=== PATIENT | female | born 1980 | race Hispanic/Latino ===

== ENCOUNTER 2016-11-23 17:55 | Emergency (ER) | payer SELFPAY ==
[2016-11-23] MEDS ORDERED: XYLOCAINE 2% INFILTRATI ONE ×2 (22:26)
--- NOTE | 2016-11-23 22:33 | Emergency Department Report ---
- General Chief complaint: Skin/Abscess/Foreign Body Stated complaint: LWR BACK PAIN /INSECT BITE UNDER LT ARM Time Seen by Provider: 11/23/16 22:06 Source: patient Mode of arrival: Ambulatory Limitations: No Limitations - History of Present Illness MD complaint: abscess/boil Onset/Timin -: days(s) Tetanus Up to Date: yes Location: LUE Severity: moderate Severity scale (0 -10): 5 Quality: burning, sharp Consistency: constant Improves with: none Worsens with: palpation, movement Context: none Associated symptoms: fever, chills, itching, nausea, myalgias Treatments Prior to Arrival: none - Related Data Previous Rx's Medication Instructions Recorded Last Taken Type Clindamycin [Clindamycin CAP] 300 mg PO Q6H #40 capsule 11/24/16 Unknown Rx traMADol [Ultram 50 MG tab] 50 mg PO Q6HR PRN #20 tablet 11/24/16 Unknown Rx Allergies Allergy/AdvReac Type Severity Reaction Status Date / Time No Known Allergies Allergy Unverified 11/23/16 19:15 Abscess Boil HPI - [facility] Chief Complaint: Skin/Abscess/Foreign Body Stated Complaint: LWR BACK PAIN /INSECT BITE UNDER LT ARM Time Seen by Provider: 11/23/16 22:06 Duration: 3 Days Location: Upper Extremity Severity: Moderate History: Yes Fever, Yes Pain, Yes Purulent Drainage, Yes Insect Bite (? insect bite "I thought it was as spider bite"), No Numbness, No Foreign Body, No Previous History Home Medications: Previous Rx's Medication Instructions Recorded Last Taken Type Clindamycin [Clindamycin CAP] 300 mg PO Q6H #40 capsule 11/24/16 Unknown Rx traMADol [Ultram 50 MG tab] 50 mg PO Q6HR PRN #20 tablet 11/24/16 Unknown Rx Allergies/Adverse Reactions: Allergies Allergy/AdvReac Type Severity Reaction Status Date / Time No Known Allergies Allergy Unverified 11/23/16 19:15 ED Review of Systems ROS: Stated complaint: LWR BACK PAIN /INSECT BITE UNDER LT ARM Other details as noted in HPI Constitutional: denies: chills, fever Eyes: denies: eye pain, eye discharge, vision change ENT: denies: ear pain, throat pain Respiratory: denies: cough, shortness of breath, wheezing Cardiovascular: denies: chest pain, palpitations Endocrine: no symptoms reported Gastrointestinal: denies: abdominal pain, nausea, diarrhea Genitourinary: denies: urgency, dysuria, discharge Musculoskeletal: denies: back pain, joint swelling, arthralgia Skin: lesions, other (abscess left Axillary ) Neurological: denies: headache, weakness, paresthesias Psychiatric: denies: anxiety, depression Hematological/Lymphatic: denies: easy bleeding, easy bruising ED Past Medical Hx - Past Medical History Previous Medical History?: No - Surgical History Past Surgical History?: No - Social History Smoking Status: Never Smoker Substance Use Type: None - Medications Home Medications: Home Medications Medication Instructions Recorded Confirmed Last Taken Type Clindamycin [Clindamycin CAP] 300 mg PO Q6H #40 capsule 11/24/16 Unknown Rx traMADol [Ultram 50 MG tab] 50 mg PO Q6HR PRN #20 tablet 11/24/16 Unknown Rx ED Physical Exam - General Limitations: No Limitations General appearance: alert, in no apparent distress - Head Head exam: Present: atraumatic, normocephalic - Eye Eye exam: Present: normal appearance, PERRL, EOMI - ENT ENT exam: Present: mucous membranes moist - Neck Neck exam: Present: normal inspection - Respiratory Respiratory exam: Present: normal lung sounds bilaterally. Absent: respiratory distress - Cardiovascular Cardiovascular Exam: Present: regular rate, normal rhythm. Absent: systolic murmur, diastolic murmur, rubs, gallop - GI/Abdominal GI/Abdominal exam: Present: soft, normal bowel sounds - Rectal Rectal exam: Present: deferred - Extremities Exam Extremities exam: Present: normal inspection, full ROM - Expanded Upper Extremity Exam Left General: Present: normal inspection Shoulder Exam: Present: normal inspection Upper Arm exam: Present: tenderness, erythema, other (left axillary ) Elbow exam: Present: normal inspection Forearm Wrist exam: Present: normal inspection Hand Wrist exam: Present: normal inspection Neuro motor exam: Present: wrist extension intact, thumb opposition intact, thumb IP flexion intact, thumb adduction intact, fingers 2-5 abduction intact Neurosensory exam: Present: 2-point discrimination, radial nerve intact Vascular: Present: normal capillary refill, radial pulse, brachial pulse, ulnar pulse. Absent: vascular compromise, pulse deficit radial art, pulse deficit ulnar art, pulse deficit brachial art - Back Exam Back exam: Present: normal inspection - Neurological Exam Neurological exam: Present: alert, oriented X3 - Psychiatric Psychiatric exam: Present: normal affect, normal mood - Skin Skin exam: Present: warm, dry, intact, erythema, other (left axillar abscess 3x4 irregular erythe moderate streaking ) ED Course Vital Signs 11/23/16 19:12 Temperature 99.4 F Pulse Rate 100 H Respiratory 20 Rate Blood Pressure 107/80 O2 Sat by Pulse 100 Oximetry - Reevaluation(s) Reevaluation #1: 11/23/16 23:32 The patient is going to sign out AGAINST MEDICAL ADVICE. The patient is alert and oriented 3. The patient exhibits decision-making capacity, and is able to articulate the risks of leaving, including , disability, paralysis, permanent loss of quality of life. The AMA conversation was witnessed by nurse Ana Stern, the patient understands that she can return to the ER right away if and when she changes her mind. The patient is informed that the ER is open 24 hours a day, and 7 days a week. The patient is able to endorse the risks of leaving in her own words, and she will be discharged with antibiotics, instructions to closely follow up if she elects to not be admitted. 11/24/16 03:19 - I & D Left Upper Arm Type of Procedure: Complex Site: left axillary Blade Size: 11 I & D Procedure: betadine prep, sterile drapes applied, gauze wick placed Progress: Left Axillary Abcess 3x4 CM with red streaking to left arm , I&D at this time , skin preped with betabdine solution, anesthesia with 2% lidicaine plain appox 3 cc, 11 blade incision, blunt probbed with forceps inocculations purulent drainage moderate amount, wound irrigated with 60 cc NS, Iodoform packing 1/4 inch, sterile dressing applied,no bleeding at this time, pt tolerated procedure with minimal distress. ED Medical Decision Making - Lab Data Result diagrams: 11/23/16 22:16 11/23/16 22:16 Laboratory Tests 11/23/16 11/23/16 11/23/16 22:16 22:16 22:32 WBC 18.8 H RBC 4.57 Hgb 13.3 Hct 40.5 MCV 89 MCH 29 MCHC 33 RDW 14.8 Plt Count 207 ESR 42 Sodium 136 L Potassium 3.4 L Chloride 97.0 L Carbon Dioxide 24 Anion Gap 18 BUN 12 Creatinine 0.8 Estimated GFR > 60 BUN/Creatinine Ratio 15.00 Glucose 95 Lactic Acid 0.90 Calcium 9.2 C-Reactive Protein 11/23/16 22:32 WBC RBC Hgb Hct MCV MCH MCHC RDW Plt Count ESR Sodium Potassium Chloride Carbon Dioxide Anion Gap BUN Creatinine Estimated GFR BUN/Creatinine Ratio Glucose Lactic Acid Calcium C-Reactive Protein 14.60 H - Medical Decision Making pt is a 36 y/o w/f with hx of abscess who presents for left axillary abscess x 3 days abscess 3x4 cm erythema fluctuant painful to touch erythema to left arm, pt I&D of same see procedure note, pt refuses Admission for DX Cellulitis and ABX tx pt rx abx, wound care and abx , pt also refuse ua for hcg , stating that she had Tubal ligation 8 yrs ago , this was previously not disclosed to provider during initial interview, pt is currently a/o x 3 with nad advises abscess "much better after you drained it" pt given wound care instructions pt will follow up with primary care doctor in 3 days, or return to emergency if symptoms worsen, Critical care attestation.: If time is entered above; I have spent that time in minutes in the direct care of this critically ill patient, excluding procedure time. ED Disposition Clinical Impression: Abscess of axilla, left Disposition: DC-07 LEFT AGAINST MED ADVICE Is pt being admited?: No Does the pt Need Aspirin: No Condition: Undetermined Instructions: Abscess (ED) Prescriptions: Clindamycin [Clindamycin CAP] 300 mg PO Q6H #40 capsule traMADol [Ultram 50 MG tab] 50 mg PO Q6HR PRN #20 tablet PRN Reason: Pain Referrals: PRIMARY CARE, [Primary Care Provider] - 3-5 Days Forms: AMA Form Time of Disposition: 03:18
[2016-11-23 22:43] LABS: Hematocrit 40.5 % (30.3-42.9); Hemoglobin 13.3 gm/dl (10.1-14.3); Mean Corpuscular HGB Conc 33 % (30-34); Mean Corpuscular Hemoglobin 29 pg (28-32); Mean Corpuscular Volume 89 fl (79-97); Platelet Count 207 K/mm3 (140-440); Red Blood Count 4.57 M/mm3 (3.65-5.03); Red Cell Distribution Width 14.8 % (13.2-15.2); White Blood Count 18.8 K/mm3 (4.5-11.0)
[2016-11-23 23:01] LABS: Anion Gap 18 mmol/L; Blood Urea Nitrogen 12 mg/dL (7-17); Calcium 9.2 mg/dL (8.4-10.2); Carbon Dioxide 24 mmol/L (22-30); Glucose 95 mg/dL (65-100); Potassium 3.4 mmol/L (3.6-5.0); Sodium 136 mmol/L (137-145)
[2016-11-23] MEDS ORDERED: NACL 0.9% 1000 ML 1,000 ML IV ONE (23:01)
[2016-11-23] MEDS ORDERED: CLEOCIN 900 MG/50 mL 900 MG/50 ML BAG IV ONE (23:01)
[2016-11-23] MEDS ORDERED: TORADOL IV ONE (23:02)
[2016-11-23 23:07] LABS: Erythrocyte Sedimentation Rate 42 mm/Hr (0-20)
[2016-11-24 03:38] VITALS: BP 95/62
== END 2016-11-24 03:39 | disposition left against medical advice (07) ==
LOC: ED 17:55
DX: L02.412 Cutaneous abscess of left axilla (principal)
CPT/HCPCS: 10061; 36415; 80048; 82140; 85027; 85652; 86140; 87040; 96365; 96375; 99283; J1885; J7030

== ENCOUNTER 2016-11-25 18:28 | Emergency (ER) | payer SELFPAY ==
[2016-11-25] MEDS ORDERED: VANCOMYCIN VIAL IV ONE (19:26)
[2016-11-25] MEDS ORDERED: NACL 0.9% 1000 ML 1,000 ML IV ONE (19:26)
[2016-11-25] MEDS ORDERED: MORPHINE IV ONE ×2 (19:27→20:44)
[2016-11-25] MEDS ORDERED: ZOFRAN IV ONE (19:29)
--- NOTE | 2016-11-25 19:29 | Emergency Department Report ---
- General Chief Complaint: Laceration/Recheck/Suture Stated Complaint: LEFT BREAST ABSCESS REPACKED Time Seen by Provider: 11/25/16 19:24 Source: patient Mode of arrival: Ambulatory Limitations: No Limitations - History of Present Illness Initial Comments: 36-year-old female past medical history smoker presents with complaint of left axillary tenderness and swelling. Patient states she had a left axilla abscess incised and drained on Saturday. Signed out AGAINST MEDICAL ADVICE. Initially plan as per patient was to be admitted for cellulitis. Patient presents states that wound was incised and drained but she is experiencing continual pain and mild spreading redness to left upper arm region. Patient denies any fever or chills no nausea or vomiting states she has been taking clindamycin. Has packing still in the left axillary incision site. Onset/Timin -: days(s) Location: other (left axilla) Extremity Location: Left: Shoulder (left axilla), Arm (left medial upper arm) Place: home Patient Tetanus UTD: Yes Context: other (abscess w/ cellulitis) Associated Symptoms: pain - Related Data Previous Rx's Medication Instructions Recorded Last Taken Type Clindamycin [Clindamycin CAP] 300 mg PO Q6H #40 capsule 11/24/16 Unknown Rx traMADol [Ultram 50 MG tab] 50 mg PO Q6HR PRN #20 tablet 11/24/16 Unknown Rx Naproxen [Naprosyn TAB] 500 mg PO BID PRN #20 tablet 11/25/16 Unknown Rx Sulfamethoxazole/Trimethoprim 1 each PO BID #14 tablet 11/25/16 Unknown Rx [Bactrim DS TAB] Allergies Allergy/AdvReac Type Severity Reaction Status Date / Time No Known Allergies Allergy Unverified 11/23/16 19:15 ED Review of Systems ROS: Stated complaint: LEFT BREAST ABSCESS REPACKED Other details as noted in HPI Constitutional: denies: chills, fever Eyes: denies: eye pain, eye discharge, vision change ENT: denies: ear pain, throat pain Respiratory: denies: cough, shortness of breath, wheezing Cardiovascular: denies: chest pain, palpitations Endocrine: no symptoms reported Gastrointestinal: denies: abdominal pain, nausea, diarrhea Genitourinary: denies: urgency, dysuria, discharge Musculoskeletal: denies: back pain, joint swelling, arthralgia Skin: as per HPI (abscess I&D'd left axilla). denies: rash, lesions Neurological: denies: headache, weakness, paresthesias Psychiatric: denies: anxiety, depression Hematological/Lymphatic: denies: easy bleeding, easy bruising ED Past Medical Hx - Past Medical History Previous Medical History?: No - Surgical History Past Surgical History?: No - Social History Smoking Status: Never Smoker Substance Use Type: None - Medications Home Medications: Home Medications Medication Instructions Recorded Confirmed Last Taken Type Clindamycin [Clindamycin CAP] 300 mg PO Q6H #40 capsule 11/24/16 Unknown Rx traMADol [Ultram 50 MG tab] 50 mg PO Q6HR PRN #20 tablet 11/24/16 Unknown Rx Naproxen [Naprosyn TAB] 500 mg PO BID PRN #20 tablet 11/25/16 Unknown Rx Sulfamethoxazole/Trimethoprim 1 each PO BID #14 tablet 11/25/16 Unknown Rx [Bactrim DS TAB] ED Physical Exam - General Limitations: No Limitations General appearance: alert, in no apparent distress - Head Head exam: Present: atraumatic, normocephalic - Eye Eye exam: Present: normal appearance, PERRL, EOMI - ENT ENT exam: Present: mucous membranes moist - Neck Neck exam: Present: normal inspection - Respiratory Respiratory exam: Present: normal lung sounds bilaterally. Absent: respiratory distress - Cardiovascular Cardiovascular Exam: Present: regular rate, normal rhythm. Absent: systolic murmur, diastolic murmur, rubs, gallop - GI/Abdominal GI/Abdominal exam: Present: soft, normal bowel sounds - Extremities Exam Extremities exam: Present: normal inspection - Expanded Upper Extremity Exam Left Shoulder Exam: Present: normal inspection, full ROM, tenderness, swelling (left axiallary abscess, tip of packing in wound) Upper Arm exam: Present: tenderness (tenerness and erythema w/ induration left upper medial arm), erythema - Back Exam Back exam: Present: normal inspection, full ROM - Neurological Exam Neurological exam: Present: alert, oriented X3, CN II-XII intact - Psychiatric Psychiatric exam: Present: normal affect, normal mood - Skin Skin exam: Present: warm, dry, intact, normal color. Absent: rash ED Course Vital Signs 11/25/16 11/25/16 18:46 20:00 Temperature 98.7 F Pulse Rate 106 H Respiratory 16 16 Rate Blood Pressure 115/71 O2 Sat by Pulse 100 Oximetry ED Medical Decision Making - Lab Data Result diagrams: 11/25/16 19:32 11/25/16 19:32 - Medical Decision Making A/P: Left axillary abscess with surrounding cellulitis, left upper extremity cellulitis 1-as per patient the cellulitis has spread slightly to left upper arm region medially. I marked the borders of cellulitis all around erythema sites. 2-I removed original packing which was approximately 2 feet of quarter inch iodoform gauze. I then irrigated wound and milked out moderate amount of pus. No other new visible abscess site, original site is draining pus. I repacked the wound with 6 inches of half-inch iodoform gauze to maintain drainage. Wound culture sent 3-Dr. Dolan also examined patient. We will add Bactrim to her current regimen of antibiotics. As abscess is draining and patient's labs are normal with no fever we will give her 48 hour wound check. As per Dr. Dolan no indication for admission at this time 4-1 dose weight-based IV vancomycin 5- naproxen when necessary Critical care attestation.: If time is entered above; I have spent that time in minutes in the direct care of this critically ill patient, excluding procedure time. ED Disposition Clinical Impression: Abscess of axilla, left, Cellulitis of axilla, left Disposition: - TO HOME OR SELFCARE Is pt being admited?: No Does the pt Need Aspirin: No Condition: Stable Instructions: Abscess Incision and Drainage (ED), Acute Wound Care (ED), Cellulitis (ED) Additional Instructions: Patient returned for wound check and packing removal in 48 hours to the emergency room as per Dr. Dolan Prescriptions: Naproxen [Naprosyn TAB] 500 mg PO BID PRN #20 tablet PRN Reason: Pain Sulfamethoxazole/Trimethoprim [Bactrim DS TAB] 1 each PO BID #14 tablet Referrals: PRIMARY CARE, [Primary Care Provider] - 3-5 Days Forms: Accompanied Note, Work/School Release Form(ED) Time of Disposition: 21:24
[2016-11-25] MEDS ORDERED: VANCOMYCIN PHARMACY TO DOSE IV SCH (20:00)
[2016-11-25] MEDS ORDERED: VANCOMYCIN 1,500 MG in NACL 0.9% 500 ML 500 ML IV ONE (20:00)
[2016-11-25] MEDS ORDERED: XYLOCAINE 1%/ EPI 1:100,000 INFILTRATI NR (20:00)
[2016-11-25 20:03] LABS: Basophils % (Auto) 0.5 % (0.0-1.8); Eosinophils % (Auto) 1.2 % (0.0-4.3); Hematocrit 34.6 % (30.3-42.9); Hemoglobin 11.6 gm/dl (10.1-14.3); Mean Corpuscular HGB Conc 34 % (30-34); Mean Corpuscular Hemoglobin 30 pg (28-32); Mean Corpuscular Volume 90 fl (79-97); Platelet Count 210 K/mm3 (140-440); Red Blood Count 3.87 M/mm3 (3.65-5.03); Red Cell Distribution Width 15.2 % (13.2-15.2); White Blood Count 9.5 K/mm3 (4.5-11.0)
[2016-11-25 20:06] LABS: Anion Gap 17 mmol/L; BUN/Creatinine Ratio 15.71; Blood Urea Nitrogen 11 mg/dL (7-17); Calcium 8.5 mg/dL (8.4-10.2); Carbon Dioxide 24 mmol/L (22-30); Chloride 104.5 mmol/L (98-107); Glucose 90 mg/dL (65-100); Potassium 3.6 mmol/L (3.6-5.0); Sodium 142 mmol/L (137-145)
[2016-11-25] MEDS ORDERED: TORADOL IV ONE (20:44)
[2016-11-25 23:27] VITALS: BP 120/74
[2016-11-26] MEDS ORDERED: VANCOMYCIN/NS 1 GM/250 ML 1 GM/250 ML BAG IV SCH (08:00)
== END 2016-11-25 23:26 | disposition home or self-care (01) ==
LOC: ED 18:28
DX: L02.412 Cutaneous abscess of left axilla (principal); L03.112 Cellulitis of left axilla
CPT/HCPCS: 36415; 80048; 82140; 85025; 87040; 87076; 87116; 87186; 96365; 96366; 96375; 96376; 99283; J1885; J2270; J2405; J3370; J7030; J7040

== ENCOUNTER 2017-04-23 18:18 | Emergency (ER) | payer OTHER ==
[2017-04-23 20:40] LABS: Basophils % (Auto) 1.3 % (0.0-1.8); Eosinophils % (Auto) 3.8 % (0.0-4.3); Hematocrit 38.1 % (30.3-42.9); Hemoglobin 12.8 gm/dl (10.1-14.3); Mean Corpuscular HGB Conc 34 % (30-34); Mean Corpuscular Hemoglobin 30 pg (28-32); Mean Corpuscular Volume 90 fl (79-97); Platelet Count 236 K/mm3 (140-440); Red Blood Count 4.24 M/mm3 (3.65-5.03); Red Cell Distribution Width 14.6 % (13.2-15.2); White Blood Count 8.3 K/mm3 (4.5-11.0)
[2017-04-23 20:57] LABS: Anion Gap 21 mmol/L; BUN/Creatinine Ratio 15; Blood Urea Nitrogen 9 mg/dL (7-17); Calcium 9.1 mg/dL (8.4-10.2); Carbon Dioxide 22 mmol/L (22-30); Chloride 103.1 mmol/L (98-107); Glucose 110 mg/dL (65-100); Potassium 3.5 mmol/L (3.6-5.0); Sodium 143 mmol/L (137-145)
[2017-04-23 20:57] LABS: Urine Drugs of Abuse Note Disclamer
[2017-04-23 21:11] LABS: Mucus,Urine 1+ /HPF
[2017-04-23 21:14] LABS: Bilirubin,Urine Negative (Negative); Blood,Urine Trace (Negative); Ketones,Urine Trace mg/dL (Negative)
[2017-04-23 21:15] LABS: Leukocyte Esterase,Urine Moderate (Negative); Nitrite,Urine Positive (Negative); Protein,Urine <15 mg/dL mg/dL (Negative); Urobilinogen,Urine < 2.0 mg/dL (<2.0)
[2017-04-23 21:16] LABS: Bacteria,Urine 1+ /HPF (Negative)
--- NOTE | 2017-04-23 21:59 | Emergency Department Report ---
HPI - General Chief Complaint: Psych Time Seen by Provider: 04/23/17 20:25 - HPI HPI: The patient is 36-year-old female who presents for evaluation of mental health. The patient reports worrying and anxiousness for the past one week, constant, severe, exacerbated with use of her cellular phone. The patient's foster mother states that the patient has been abusing illicit drugs. She also submits that the patient needs assistance with housing as the patient is no longer welcome at her home. The patient denies fever, headache, unexplained weight loss or weight gain, heat or cold intolerance, skin, hair, or nail changes, neuro deficits, suicidal ideations, homicidal ideations, or auditory or visual hallucinations. ED Past Medical Hx - Past Medical History Previous Medical History?: Yes Hx Hypertension: Yes - Surgical History Past Surgical History?: Yes Additional Surgical History: - Social History Smoking Status: Current Every Day Smoker Substance Use Type: Alcohol - Medications Home Medications: Home Medications Medication Instructions Recorded Confirmed Last Taken Type Clindamycin [Clindamycin CAP] 300 mg PO Q6H #40 capsule 11/24/16 Unknown Rx traMADol [Ultram 50 MG tab] 50 mg PO Q6HR PRN #20 tablet 11/24/16 Unknown Rx Naproxen [Naprosyn TAB] 500 mg PO BID PRN #20 tablet 11/25/16 Unknown Rx Sulfamethoxazole/Trimethoprim 1 each PO BID #14 tablet 11/25/16 Unknown Rx [Bactrim DS TAB] ED Review of Systems ROS: Stated complaint: MENTAL HEALTH EVALUATION Other details as noted in HPI Constitutional: denies: fever ENT: denies: throat or neck pain Respiratory: denies: cough, shortness of breath Cardiovascular: denies: chest pain Endocrine: denies unexplained weight loss or gain Gastrointestinal: denies: abdominal pain, nausea Genitourinary: denies: dysuria Musculoskeletal: denies: leg swelling Skin: denies: rash Neurological: denies: headache Hematological/Lymphatic: denies: easy bleeding or easy bruising Psych: reports anxiousness denies sadness or hopelessness Physical Exam - Physical Exam Vital Signs: Vital Signs 04/23/17 19:05 Temperature 97.8 F Pulse Rate 88 Respiratory 16 Rate Blood Pressure 130/92 O2 Sat by Pulse 97 Oximetry Physical Exam: General: well-nourished, well-developed, no acute distress Head: Normocephalic, atraumatic Eyes: normal sclera ENT: Mucous membranes are pink and moist Neck: trachea midline, neck supple, No neck stiffness, no cervical adenopathy Respiratory: Breath sounds equal bilaterally, no wheezing, rales, or rhonchi Cardio: S1 and S2 present, no murmurs, rubs, gallops, capillary refill is brisk Abdomen: Normoactive bowel sounds, soft abdomen, no tenderness Musc: No pitting edema Skin: No rash Neuro: no facial drooping, normal speech Psych: Normal affect, anxious, paranoid, normal mood, no hallucinations, no suicidal or homicidal ideations ED Course Vital Signs 04/23/17 19:05 Temperature 97.8 F Pulse Rate 88 Respiratory 16 Rate Blood Pressure 130/92 O2 Sat by Pulse 97 Oximetry ED Medical Decision Making - Lab Data Result diagrams: 04/23/17 20:26 04/23/17 20:26 - Medical Decision Making The patient was seen and examined by myself. The patient is placed on a bus driver/monitor and continuous pulse ox. On initial evaluation, the patient was found to be in no distress. Labs are obtained. Lab results revealed positive UDS screen for cocaine and marijuana and otherwise labs are grossly unremarkable. The patient is medically clear. Mental health is consulted. Mental health evaluates the patient and agrees that the patient is negative for findings meeting diagnosis of acute psychosis, or for findings concerning for risk of harm to herself or others. A social work consult is placed in attempts provide patient assistance with housing placement. Social work consult is pending and the patient is signed off to the on-coming 6a morning shift ED physician. Critical care attestation.: If time is entered above; I have spent that time in minutes in the direct care of this critically ill patient, excluding procedure time. ED Disposition Clinical Impression: Behavior concern in adult, Polysubstance abuse Disposition: DC-01 TO HOME OR SELFCARE Is pt being admited?: No Does the pt Need Aspirin: No Condition: Stable Instructions: Medical Clearance for Substance Abuse Treatment (ED), Medical Clearance for Psychiatric Care (ED), Mood Disorders (ED) Referrals: PRIMARY CARE, [Primary Care Provider] - 3-5 Days [facility] [Provider Group] - 3-5 Days Time of Disposition: 21:58
[2017-04-24] MEDS ORDERED: HALDOL IM PRN (11:02)
[2017-04-24] MEDS ORDERED: BENTYL IM ONE (11:02)
[2017-04-24] MEDS ORDERED: BENADRYL IM PRN (11:02)
--- NOTE | 2017-04-25 12:42 | Progress Note ---
Subjective - Reason for Consult Consult date: 04/25/17 Reason for consult: Psychiatry Follow-up - Chief Complaint Chief complaint: The patient is 36-year-old female who presents for evaluation of mental health. The original psy consult was completed yesterday on this patient, this is a follow-up. Today patient is calm and cooperative, but disorganized with a tangential thought process during the assessment. The patient continue to state that she was getting weird text messages from "something or someone" over a course of a week. She stated that she threw her cell phone away because she was afraid. She had to be redirected several time to keep her focused on the questions asked of her. She was looking around the room and pausing before she answer questions during the assessment, possibly responding to some type of stimuli. She denies using cocaine, but admit to smoking marijuana 3 weeks ago. Patient is positive for both substances on admission. She could not confirm or deny erratic sleep prior to her admission to the hospital. She denies SI/HI' and AVH's. Per collateral information Wilfredo Goodwin, the patient has been bizarre and was missing for days several weeks ago. She stated that patient has been paranoid and delusional in her thinking lately. She stated that they have a fam psy hx of Schizophrenia and Bipolar DO. Mental Status Exam - Vital signs Last Vital Signs Temp 98 F 04/24/17 07:41 Pulse 94 H 04/24/17 07:41 Resp 18 04/24/17 20:05 BP 125/91 04/24/17 07:41 Pulse Ox 99 04/24/17 20:05 - Exam Narrative exam: MSE: Appearance: calm, cooperative Behavior: regular eye contact Speech: regular rate and tone Mood: "okay" Affect: flat Thought Process: tangential Thought Content: denies SI/HI's and AVH's, disorganized, delusional Motor Activity: ambulatory Cognition: A/O x3 Insight: poor Judgment: poor Assessment and Plan Impression: Unspecified Psychosis. Substance Use DO (cocaine/marijuana). Today patient is calm and cooperative, but disorganized with a tangential thought process during the assessment. DDx: Bipolar DO, Schizophrenia, R/O Substance Induced Psychosis Recommendation/Plan: The initial psy consult will be completed within 24 hours. Continue 1013 with placement to inpatient psy services. Start Risperdal 0.5 mg PO HS for psychosis and Cogentin 0.5 mg PO HS for EPS prevention. Discussed possible metabolic side effects with patient reference Risperdal.
--- NOTE | 2017-04-25 18:46 | Consultation ---
History of Present Illness - Reason for Consult Consult date: 04/24/17 Reason for consult: psychosis Medications and Allergies Allergies Allergy/AdvReac Type Severity Reaction Status Date / Time No Known Allergies Allergy Unverified 11/23/16 19:15 Home Medications Medication Instructions Recorded Confirmed Last Taken Type No Known Home Medications [No 04/24/17 04/24/17 Unknown History Reported Home Medications] Active Meds: Active Medications Benztropine Mesylate (Cogentin) 0.5 mg PO HS FOR[facility]LY [facility], 1928–1983 Diphenhydramine HCl (Benadryl) 50 mg IM Q6H PRN PRN Reason: Agitation Haloperidol Lactate (Haldol) 10 mg IM Q8H PRN PRN Reason: Agitation Last Admin: 04/24/17 11:18 Dose: 10 mg Risperidone (Risperdal) 0.5 mg PO QHS FOR[facility], 1928–1983 Mental Status Exam - Vital signs Last Vital Signs Temp 98.6 F 04/25/17 13:07 Pulse 104 H 04/25/17 13:07 Resp 18 04/25/17 17:58 BP 107/76 04/25/17 13:07 Pulse Ox 99 04/25/17 13:07 Results Result Diagrams: 04/23/17 20:26 04/23/17 20:26 All other labs normal. Assessment and Plan Assessment and plan: CHIEF COMPLAINT IN PATIENTS WORDS: I'm better now HISTORY OF PRESENT ILLNESS REQUIRING ADMISSION TO INPATIENT LEVEL OF CARE: (Describe the onset of Illness, Intensity of Symptoms, and Circumstances Leading to Admission) This is a 36-year-old female who presents to [facility] due to recent presentation with disorganized behaviors. UDS was positive for cocaine and cannabis. During the examination, she was sedated due to a recent administration of a PRN to address recent agitation. PSYCHIATRIC REVIEW OF SYSTEMS: Depression: withdrawn, sleep disturbance Psychosis: paranoid, ideas of reference Anxiety/ OCD/ PTSD: Suicidality: denies Behavior: bizzare Violent/ Aggressive Behavior: None reported Functional Impairment: poor relationships CURRENT MEDICATIONS: ( Psychiatric and Non-psychiatric ) unknown to the patient ALLERGIES: NKDA PAST PSYCHIATRIC HISTORY: ( Prior Treatment, Precipitating Factors, Diagnosis, and Course of Treatment ) Inpatient: unknown Outpatient: unknown Prior Self Injurious Behaviors: unknown Prior Suicide Attempts: unknown PAST PSYCHIATRIC MEDICATION TRIALS: Unknown MEDICAL HISTORY: (Chronic and Acute Illnesses, Current Medical Treatment, Recent Hospitalizations) n/a HISTORY OF TRAUMA/ABUSE: DRUG / ALCOHOL ABUSE HISTORY: Detoxification / Withdrawal: no withdrawal symptoms noted on clinical examination SOCIAL HISTORY: (Educational Level, Employment, Support System, Interpersonal Relationships) Lived recent with her sister FAMILY HISTORY:Psychiatric/Substance Abuse Unknown MENTAL STATUS EXAM: Consciousness: alert and responding to external stimuli General Appearance: Well groomed Eye Contact: intermittent Attitude / Behavior: Cooperative, but not well related Sensorium: sedated Psychomotor & Musculoskeletal Activity: PMR Mood: irritable, anxious Affect: labile Speech / Language: Normal Thought Processes: disorganized Thought Content: no SI, no HI, ideas of reference Perception: No AVH Orientation: person, place Concentration/Attention: impaired WORLD backwards: did not assess Memory Immediate Digit Span (1-2-1-9-3-1-5): did not assess Memory Recent(Objects: Lamp, Umbrella, and Telephone) Patient Response: did not assess Memory Remote (Name as many presidents as you can starting with current one and going backwards) Patient Response: did not assess Judgment What would you do if you smelled smoke in a crowded movie theater?: Limited Insight: poor Intelligence Vocabulary, general fund of knowledge, educational level : Average Capacity of ADLs: Independent STRENGTHS: PSYCHOSOCIAL AND ENVIRONMENTAL STRESSORS: ADMITTING DIAGNOSES Unspecified Psychosis r/o SIPD, SIMD, BPAD PLAN: Obtain collateral and reconcile home medications
[2017-04-25] MEDS ORDERED: RisperDAL PO SCH (22:00)
[2017-04-25] MEDS ORDERED: COGENTIN PO SCH (22:00)
[2017-04-25] MEDS: RisperDAL PO SCH (22:20)
--- NOTE | 2017-04-26 10:53 | Progress Note ---
Subjective - Reason for Consult Consult date: 04/26/17 Reason for consult: Psychiatry Follow-up - Chief Complaint Chief complaint: "I feel rested" The patient is 36-year-old female who presents for evaluation of mental health. Today patient is calm and cooperative during the assessment. The patient stated that she got rest last night for the first time in days. She was more organized with her thoughts than yesterday. She stated that she knew something was wrong with her "mind" for several years, but was in denial. She denies SI/HI's and AVH 's. She did state that she woke up with dry mouth "really bad" this morning. Mental Status Exam - Vital signs Last Vital Signs Temp 98.6 F 04/25/17 13:07 Pulse 104 H 04/25/17 13:07 Resp 18 04/25/17 17:58 BP 107/76 04/25/17 13:07 Pulse Ox 99 04/25/17 13:07 - Exam Narrative exam: MSE: Appearance: calm, cooperative Behavior: regular eye contact Speech: regular rate and tone Mood: "rested" Affect: congruent to mood Thought Process: circumstantial Thought Content: denies SI/HI's and AVH's Motor Activity: ambulatory Cognition: A/O x3 Insight: variable Judgment: variable Assessment and Plan Impression: Unspecified Psychosis. Substance Use DO (cocaine/marijuana). Today patient is calm and cooperative during the assessment. DDx: Bipolar DO, Schizophrenia, R/O Substance Induced Psychosis Recommendation/Plan: Continue 1013 with placement to inpatient psy services. Continue Risperdal 0.5 mg PO HS for psychosis. Discussed possible metabolic side effects with patient reference Risperdal.
[2017-04-26] MEDS: RisperDAL PO SCH (22:12)
[2017-04-27] MEDS: RisperDAL PO SCH (23:15)
--- NOTE | 2017-04-28 10:46 | Progress Note ---
Subjective - Reason for Consult Consult date: 04/28/17 Reason for consult: Psychiatry Follow-up - Chief Complaint Chief complaint: "Hello" The patient is 36-year-old female who presents for evaluation of mental health. Today patient is calm and cooperative during the assessment. She stated that she look forward to being discharge and plan to use outpatient/rehab services. She denies SI/HI's and AVH's. She denies any side effects of her medication. Mental Status Exam - Vital signs Last Vital Signs Temp 98.3 F 04/27/17 22:52 Pulse 70 04/27/17 22:52 Resp 16 04/27/17 22:52 BP 94/63 04/27/17 22:52 Pulse Ox 95 04/27/17 22:52 - Exam Narrative exam: MSE: Appearance: calm, cooperative Behavior: regular eye contact Speech: regular rate and tone Mood: "so much better" Affect: congruent to mood Thought Process: logical Thought Content: denies SI/HI's and AVH's Motor Activity: ambulatory Cognition: A/O x3 Insight: variable Judgment: variable Assessment and Plan Impression: Unspecified Psychosis. Substance Use DO (cocaine/marijuana). Today patient is calm and cooperative during the assessment. DDx: Bipolar DO, Schizophrenia, R/O Substance Induced Psychosis Recommendation/Plan: Rescind 1013. Continue Risperdal 0.5 mg PO HS for psychosis. Discussed possible metabolic side effects with patient reference Risperdal. Patient given outpatient/rehab service for [facility].
[2017-04-28 12:02] VITALS: BP 97/68
== END 2017-04-28 16:08 | disposition home or self-care (01) ==
LOC: ED 18:18 → EEVIPCON 18:18 → ED 04-28 16:08
DX: F19.10 Other psychoactive substance abuse, uncomplicated (principal); I10 Essential (primary) hypertension; F17.210 Nicotine dependence, cigarettes, uncomplicated
CPT/HCPCS: 36415; 80048; 80307; 81001; 85025; 96372; 99284; G0480; J0500; J1630; 80320; 99285

== ENCOUNTER 2020-12-06 20:35 | Emergency (ER) | payer SELFPAY | END 2020-12-06 21:40 | disposition left against medical advice (07) | LOC: ED 20:35 | DX: S69.92XA Unspecified injury of left wrist, hand and finger(s), initial encounter (principal); Z53.21 Procedure and treatment not carried out due to patient leaving prior to being seen by health care provider; X58.XXXA Exposure to other specified factors, initial encounter; Y93.89 Activity, other specified; Y92.89 Other specified places as the place of occurrence of the external cause; Y99.8 Other external cause status ==